=== PATIENT | female | born 1985 | race Caucasian/White ===

== ENCOUNTER 2020-07-25 17:19 | Outpatient (CLI) | payer OTHER, MEDICARE, SELFPAY ==
--- NOTE | ~2020-07-25 | XR_ITS ---
EXAMINATION: XR abdomen/kub 1V EXAM DATE: 07/25/2020 17:45 INDICATION: K59.00 - Constipation, unspecified . TECHNIQUE: Frontal projection of the upper abdomen, frontal projection lower abdomen/pelvis for inter pretation. There is no prior study for comparison. FINDINGS: There is expected amount of colonic stool and gas. No small bowel dilation, nonobstructiv e bowel gas pattern. There are no suspicious calcifications identified. There is no organomegaly suspected. The bones are unremarkable. There is no free intraperitoneal air. The lung bases are clear. IMPRESSION: Unremarkable abdomen x-ray exam. Reviewed, dictated and finalized at location A. 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
== END 2020-07-25 17:20 | disposition home or self-care (01) ==
PROVIDERS: PCP Family Medicine; Visit Provider Physician Assistant
DX: K59.00 Constipation, unspecified (principal)
CPT/HCPCS: 74018

== ENCOUNTER 2020-09-20 08:51 | Emergency (ER) | payer OTHER, MEDICARE, SELFPAY ==
[2020-09-20 09:02] VITALS: BP 126/88; PULSE 96; RESP 18; TEMP 36.2; O2SAT 99
[2020-09-20 09:49] LABS: Basophils Percent Auto 0.2 % (0.2-1.2); Eosinophils Absolute Auto 0.2 K/mm3 (0-0.3); Eosinophils Percent Auto 3.1 % (0-4.4); Hematocrit 39.7 % (37.0-47.0); Hemoglobin 13.2 g/dL (12.0-15.0); Immature Granulocyte Absolute 0.01 K/mm3 (0.00-0.031); Immature Granulocyte Percent A 0.2 % (0-0.5); Lymphocytes Absolute Auto 1.12 K/mm3 (0.9-3.2); Lymphocytes Percent Auto 19.3 % (18.3-44.2); Mean Corpuscular HGB Conc 33.2 g/dl (32-36); Mean Corpuscular Hemoglobin 27.8 pg (26-34); Mean Corpuscular Volume 83.6 fl (80-100); Mean Platelet Volume 9.8 fl (7.4-10.4); Monocytes Absolute Auto 0.5 K/mm3 (0.1-0.6); Monocytes Percent Auto 8.8 % (2.6-8.5); Neutrophils Percent Auto 68.4 % (45.5-73.1); Platelet Count Result 303 k/mm3 (150-375); Red Blood Count 4.75 M/mm3 (4.2-5.4); Red Cell Distribution Width 12.7 % (11.5-14.5); White Blood Count 5.8 K/mm3 (4.5-10.0)
[2020-09-20 09:54] LABS: Add Urine Microscopic? YES; Appearance Urine Cloudy (Clear); Bilirubin Urine Negative (Negative); Blood Urine 1+ (Negative); Color Urine Yellow (Yellow); Glucose Urine UA Negative (Negative); Ketones Urine 1+ mg/dL (Negative); Leukocyte Esterase Ur 1+ LEU/UL (Negative); Mucus Urine Few /lpf; Nitrate Urine Negative (Negative); Protein Urine 1+ mg/dL (Negative); RBC Urine 0-2 /hpf (0-2); Specific Grav Ur 1.016 (1.001-1.035); Squamous Epithelial Cell Urine Many /hpf (Few); Urobilinogen Urine Negative mg/dL (<2.0)
[2020-09-20 10:04] LABS: Alanine Aminotransferase 27 U/L (4-35); Albumin Level 4.3 g/dL (3.5-5.1); Alkaline Phosphatase 65 U/L (38-126); Anion Gap 9 mmol/L (8-16); Aspartate Amino Transferase 32 U/L (14-36); Bilirubin,Total 0.5 mg/dL (0.2-1.3); Blood Urea Nitrogen 4 mg/dL (7-17); Calcium 9.1 mg/dL (8.4-10.2); Carbon Dioxide 29 mmol/L (22-30); Chloride 101 mmol/L (98-107); Estimated CRCL calculation 174 ml/min; Estimated Glomerular Filt Rate > 60; Glucose 90 mg/dL (65-105); Lipase 127 U/L (23-300); Potassium 3.7 mmol/L (3.4-5.0); Sodium 139 mmol/L (137-145)
--- NOTE | 2020-09-20 10:22 | ED.GENADULT ---
HPI - General Adult General Chief complaint: Nausea/Vomiting/Diarrhea Stated complaint: diarrhea Time Seen by Provider: 09/20/20 09:14 Source: patient Mode of arrival: ambulatory Limitations: no limitations History of Present Illness HPI narrative: Patient is a 34-year-old female who presents with diarrhea since Thursday has had up to 9 loose stools per day described as watery patient was seen by primary care on Thursday given an antibiotic which she has not taken and also advised to take Imodium which she states made the diarrhea worse. Patient on arrival is in no distress patient notes that she gets intermittent cramping but denies any constant pain rectal bleeding melena nausea or vomiting or any fever chills. Patient notes that she also had a negative Covid test. Patient with history of ALS followed out of [facility]. Patient on arrival in no distress does not appear toxic. Patient denies sick contacts or similar occurrence in the past. Patient notes she is in a trial on a new medication for ALS and has been on this for months without issue. Related Data Home Medications Medication Instructions Recorded Confirmed amitriptyline 25 mg tablet 25 mg PO ONCE 09/05/19 09/20/20 baclofen 10 mg tablet 10 mg PO DAILY 09/05/19 09/20/20 edaravone 30 mg/100 mL intravenous 60 mg IVPB DAILY 09/05/19 09/20/20 piggyback riluzole 50 mg tablet 50 mg PO Q12H 09/05/19 09/20/20 omeprazole 40 mg capsule,delayed 40 mg PO DAILY 07/25/20 09/20/20 release Allergies Allergy/AdvReac Type Severity Reaction Status Date / Time No Known Allergies Allergy Verified 09/20/20 09:06 Review of Systems Review of Systems: All systems reviewed & are unremarkable except as noted in HPI and below PMFSH Past Medical History Medical History Abnormality of gait ALS (amyotrophic lateral sclerosis) Family History Family History Grandparent Hypertension Family history of arthritis Carcinoma of colon Sibling Family history of alcoholism Mother Family history of arthritis Social History Social History Social History: Smoking status: Never smoker Second hand tobacco smoke exposure: No Alcohol intake: never Substance use: never Substance use type: does not use Gender identity (if verbalized by the patient): Female Exam Narrative: Exam Narrative: GENERAL: Well-appearing, well-nourished, and in no acute distress. HEAD: Normocephalic, atraumatic. EYES: PERRLA and EOMI. ENT: Nares clear, no rhinorrhea or epistaxis. Mucous membranes moist. CHEST: Clear to auscultation. No respiratory distress. No wheezes rales or rhonchi HEART: Regular rate and rhythm. No murmur heard. Normal peripheral pulses. ABDOMEN: Soft, nontender, nondistended EXTREMITIES: No edema SKIN: Warm, dry, no rash. NEURO: No focal deficits. Alert and oriented x3. Cranial nerves II through XII grossly intact PSYCH: Normal mood and affect. Course Course Emergency Course: Patient in the room at this time aware of case findings treatment plan diagnosis was unable to produce a stool sample in the emergency department patient is tolerating p.o. intake has been hydrated with 2 L in the emergency department. Patient afebrile nontoxic-appearing no distress no high risk changes in the blood work. Patient with nontender abdominal exam. Vital Signs Vital signs: Vital Signs Temperature 97.1 F L 09/20/20 09:02 Pulse Rate 96 09/20/20 09:02 Respiratory Rate 18 09/20/20 09:02 Blood Pressure 126/88 09/20/20 09:02 Pulse Oximetry 99 09/20/20 09:02 Temperature 97.1 F L 09/20/20 09:02 Pulse Rate 96 09/20/20 09:02 Respiratory Rate 18 09/20/20 09:02 Blood Pressure 126/88 09/20/20 09:02 Pulse Oximetry 99 09/20/20 09:02 Medical Decision Making [facility] Narrative Med
[2020-09-20] MEDS: HYOSCYAMINE SULFATE 0.125 MG TABLET PO (10:31)
[2020-09-20] MEDS: FAMOTIDINE 20 MG/2 ML VIAL IV PUSH (10:31)
[2020-09-20] MEDS: SODIUM CHLORIDE 0.9% IV 1,000 ML 999 ML IV CONT (10:31)
[2020-09-20] MEDS: DEXTROSE 5%/LACTATED RINGERS 1,000 ML 999 ML IV CONT (10:32)
--- NOTE | 2020-09-20 12:28 | PC.NURSE ---
Pt to stool to attempt to collect stool speciman. No BM produced at this time. Pt states her cramping has improved somewhat. Pt's IVF reattached, educated to hold arm straight for those to complete.
[2020-09-20 13:27] VITALS: BP 122/78; PULSE 76; RESP 18; O2SAT 99
== END 2020-09-20 13:28 | disposition home or self-care (01) ==
PROVIDERS: Emergency Medicine Emergency Medical Services; Emergency Provider Emergency Medicine; PCP Family Medicine
DX: R19.7 Diarrhea, unspecified (principal); G12.21 Amyotrophic lateral sclerosis; Z79.899 Other long term (current) drug therapy
CPT/HCPCS: 36415; 80053; 81001; 81025; 83690; 84443; 85025; 87086; 96361; 96374; 99284; A9270; J7030; J7121

== ENCOUNTER 2020-09-21 06:36 | Outpatient (NON) | payer OTHER, MEDICARE, SELFPAY | END 2020-09-21 06:37 | PROVIDERS: PCP Family Medicine; Visit Provider Emergency Medicine Emergency Medical Services | DX: R19.7 Diarrhea, unspecified (principal) | CPT/HCPCS: 87045; 87046; 87324; 87427; 87493; 89055 ==

== ENCOUNTER 2021-05-09 15:07 | Observation (INO) | payer OTHER, MEDICARE, SELFPAY ==
[2021-05-09] VITALS (16 sets, daily range): BP systolic 99–132; BP diastolic 58–91; PULSE 86–147; RESP 16–27; TEMP 36.2–37.9; O2SAT 94–100; BMI 23.9
--- NOTE | ~2021-05-09 | US_ITS ---
EXAMINATION: US venous doppler UE LT DATE: 05/10/2021 09:27 INDICATION: Left upper limb erythema. TECHNIQUE: Grayscale ultrasound images without and with compression and Doppler ultrasound images of the left upper extremity veins were obtained. COMPARISON: None. FINDINGS: The visualized portions of the left internal jugular vein, subclavian vein, axillary vein, brachial v eins, basilic vein, cephalic vein, and radial vein are patent. The ulnar vein is not identified. Ther e is thrombus in a superficial vein in the lateral forearm. IMPRESSION: 1. No deep venous thrombosis. 2. Superficial vein thrombosis in the lateral forearm. Reviewed, dictated and finalized at location A.
--- NOTE | ~2021-05-09 | XR_ITS ---
EXAMINATION: XR chest 1V portable INDICATION: Fever TECHNIQUE: Portable AP chest at 1548 hours COMPARISON: 09/05/2007 FINDINGS: The lungs are free of acute opacities. There is no pleural effusion or pneumothorax. The ca rdiothymic silhouette is normal. IMPRESSION: 1. No acute cardiopulmonary abnormality. Reviewed, dictated and finalized at location A.
--- NOTE | 2021-05-09 15:18 | ECG_ITS ---
Measurements Intervals [place] Rate: 54 P: 24 RI: 115 QRS: 75 QRSD: 78 T: 10 QT: 478 QTc: 455 Interpretive Statements SINUS TACHYCARDIA WITH SHORT RI INTERVAL INCOMPLETE RIGHT BUNDLE BRANCH BLOCK LOW QRS VOLTAGE IN PRECORDIAL LEADS BORDERLINE T WAVE ABNORMALITY- DIFFUSE LEADS BASELINE ARTIFACT- I, II, III, AVR, AVL, AVF, V1-V6 ABNORMAL ECG Electronically Signed On 05-09-2021 16:26:18 CDT by Neil Nina D.O.
[2021-05-09] MEDS: SODIUM CHLORIDE 0.9% IV 1,000 ML 999 ML IV CONT ×2 (16:08→16:54)
--- NOTE | 2021-05-09 16:10 | PC.NURSE ---
Pt states she has been experincing fever and body ache, she took ibuprofen at 1330, pt states she has chills last night as well, pt A&Ox4, no acute distress at this time
[2021-05-09 16:30] LABS: Basophils Percent Auto 0.5 % (0.2-1.2); Eosinophils Absolute Auto 0.4 K/mm3 (0-0.3); Eosinophils Percent Auto 5.9 % (0-4.4); Hematocrit 35.6 % (37.0-47.0); Hemoglobin 12.1 g/dL (12.0-15.0); Immature Granulocyte Absolute 0.02 K/mm3 (0.00-0.031); Immature Granulocyte Percent A 0.3 % (0-0.5); Lymphocytes Absolute Auto 0.26 K/mm3 (0.9-3.2); Lymphocytes Percent Auto 4.2 % (18.3-44.2); Mean Corpuscular Hemoglobin 28.4 pg (26-34); Mean Corpuscular Volume 83.6 fl (80-100); Mean Platelet Volume 9.7 fl (7.4-10.4); Monocytes Absolute Auto 0.3 K/mm3 (0.1-0.6); Monocytes Percent Auto 4.8 % (2.6-8.5); Neutrophils Absolute Auto 5.3 K/mm3 (1.3-6.7); Neutrophils Percent Auto 84.3 % (45.5-73.1); Platelet Count Result 219 k/mm3 (150-375); Red Blood Count 4.26 M/mm3 (4.2-5.4); Red Cell Distribution Width 13.1 % (11.5-14.5); White Blood Count 6.3 K/mm3 (4.5-10.0)
[2021-05-09 16:40] LABS: Prothrombin Time 13.4 Seconds (11.1-14.7)
[2021-05-09 16:41] LABS: Partial Thromboplastin Time 30.4 SECONDS (22.3-36.8)
[2021-05-09 16:59] LABS: Alanine Aminotransferase 36 U/L (4-35); Albumin Level 4.4 g/dL (3.5-5.1); Alkaline Phosphatase 70 U/L (38-126); Anion Gap 10 mmol/L (8-16); Aspartate Amino Transferase 47 U/L (14-36); Blood Urea Nitrogen 9 mg/dL (7-17); CRP 6.4 mg/dL (<1.0); Calcium 9.3 mg/dL (8.4-10.2); Carbon Dioxide 23 mmol/L (22-30); Chloride 101 mmol/L (98-107); Estimated CRCL calculation 238 ml/min; Estimated Glomerular Filt Rate > 60; Glucose 110 mg/dL (65-110); Potassium 3.6 mmol/L (3.4-5.0); Sodium 134 mmol/L (137-145)
--- NOTE | 2021-05-09 17:17 | ED.FEVER ---
HPI - Fever General Chief Complaint: Fever Stated Complaint: Fever, Chills Time Seen by Provider: 05/09/21 15:20 Source: patient History of Present Illness HPI Narrative: Patient presents with fever. Carissa has had fever since yesterday and generalized fatigue. Rockys last time she had symptoms like this she had sepsis. She reports she was seen in urgent care was initially feeling better however today her symptoms worsen so she came to the ER for evaluation reports other than the fatigue she does not clear as of pain reports very mild headache she denies cough, congestion, urinary symptoms nausea,, vomiting, chest pain as of breath, abdominal pain. Related Data Home Medications Medication Instructions Recorded Confirmed amitriptyline 25 mg tablet 25 mg PO ONCE 09/05/19 09/20/20 baclofen 10 mg tablet 10 mg PO DAILY 09/05/19 09/20/20 edaravone 30 mg/100 mL intravenous 60 mg IVPB DAILY 09/05/19 09/20/20 solution riluzole 50 mg tablet 50 mg PO Q12H 09/05/19 09/20/20 omeprazole 40 mg capsule,delayed 40 mg PO DAILY 07/25/20 09/20/20 release Allergies Allergy/AdvReac Type Severity Reaction Status Date / Time No Known Allergies Allergy Verified 09/20/20 09:06 Review of Systems Review of Systems: CONSTITUTIONAL: Patient reports fevers EYES: Denies visual changes, redness, or discharge. ENT: Denies rhinorrhea, congestion, sore throat, or otalgia. CARDIOVASCULAR: Denies chest pain, palpitations, or edema. RESPIRATORY: Denies cough or dyspnea. GASTROINTESTINAL: Denies abdominal pain, nausea, vomiting, or diarrhea. GENITOURINARY: Denies dysuria or hematuria. SKIN: Denies rash or itching. MUSCULOSKELETAL: Denies back pain, joint pain, or myalgia. NEUROLOGIC: Denies headache, numbness, dizziness, or acute focal weakness. PSYCHIATRIC: Denies anxiety or depression. All systems reviewed & are unremarkable except as noted in HPI and below PMFSH Past Medical History Medical History Abnormality of gait ALS (amyotrophic lateral sclerosis) Family History Family History Grandparent Hypertension Family history of arthritis Carcinoma of colon Sibling Family history of alcoholism Mother Family history of arthritis Social History Social History Social History: Smoking status: Never smoker Second hand tobacco smoke exposure: No Alcohol intake: never Substance use: never Substance use type: does not use Gender identity (if verbalized by the patient): Female Sexual Orientation (if Verbalized by the Patient): Straight or Heterosexual Exam Narrative: GENERAL: Well-appearing, well-nourished, and in no acute distress. HEAD: Normocephalic, atraumatic. EYES: PERRLA and EOMI. ENT: Nares clear, no rhinorrhea or epistaxis. Mucous membranes moist. NECK: Supple. No masses. No JVD CHEST: Clear to auscultation. No respiratory distress. No wheezes rales or rhonchi HEART: Regular tachycardia. No murmur heard. Normal peripheral pulses. ABDOMEN: Soft, nontender, nondistended, normal active bowel sounds. EXTREMITIES: Limited range of motion due to weakness of ALS lower extremity muscle atrophy SKIN: Warm, dry, no rash. NEURO: No focal deficits. alert and oriented x3. PSYCH: Normal mood and affect. Course Reevaluation(s) Reevaluation #1: Patient is resting comfortably tachycardia is improved but persistent. Symptoms remain of unclear etiology however given persistent tachycardia will admit for observation and further management. Patient comfortable inpatient plan. Date: 05/09/21 Time: 17:40 Vital Signs Vital signs: Vital Signs Temperature 37.9 C H 05/09/21 15:15 Pulse Rate 141 H 05/09/21 15:15 Respiratory Rate 18 05/09/21 15:15 Blood Pressure 129/91 H 05/09/21 15:15 Pulse Oximetry 96 05/09/21 15:15 Temperature 36.2 C L
[2021-05-09 17:20] LABS: Add Urine Microscopic? YES; Appearance Urine Clear (Clear); Bilirubin Urine Negative (Negative); Blood Urine 1+ (Negative); Color Urine Yellow (Yellow); Glucose Urine UA Negative (Negative); Ketones Urine 1+ mg/dL (Negative); Leukocyte Esterase Ur Negative LEU/UL (Negative); Mucus Urine Rare /lpf; Nitrate Urine Negative (Negative); Protein Urine 1+ mg/dL (Negative); Specific Grav Ur 1.018 (1.001-1.035); Squamous Epithelial Cell Urine Few /hpf (Few); Urobilinogen Urine Negative mg/dL (<2.0); WBC Urine 0-3 /hpf
[2021-05-09] MEDS: IBUPROFEN IV 800 MG/200 ML 800 MG/200 ML BAG 400 MG IVPB (18:49)
[2021-05-09] MEDS: SODIUM CHLORIDE 0.9% IV 1,000 ML 125 ML IV CONT (19:30)
--- NOTE | 2021-05-09 21:47 | PC.NURSE ---
This patient, Jigna Winter, was admitted to 3 [facility] Surg Room 324-01 @21:47. Patient/family oriented to hospital policies and general routines including ID bracelet, bed and alarms, visiting hours, pain management, procedures, bathroom and other care routines, personal items, smoking policy, room service/diet, and visiting hours. Information on how to activate the Rapid Response Team has been discussed. Patient/Family are encouraged to report perceived risks to care and to ask questions if they do not understand what they are told or what they should do.
--- NOTE | 2021-05-09 21:51 | PM.IMHP ---
H&P: HPI History of Present Illness Date/Time: 05/09/21 21:51 this is a 35-year-old female patient who is wheelchair-bound and has a history of ALS. The patient is currently taking daily IV infusions for her ALS and is on day 10 of . She tells me that she has had an IV in the left forearm for 5 days and is slightly red and tender. The patient stated that she had a temperature over 100? today and was concerned. She has myalgia and generalized fatigue. She stated she felt like this when she had sepsis in the past. She went to urgent care initially but decided to come to the emergency room because she felt worse. She also had a mild headache but denies any cough for congestion. The patient stated she took Motrin today and her stomach got upset she had some acid reflux and some nausea afterwards. The patient typically urinates on her own and does not have to self cath. She denies any urinary symptoms at this time. She denies any shortness of breath or any abdominal pain. She has no leukocytosis however neutrophil percentage is 84.3. I recommended Infectious Disease and Infectious Disease was consulted recommended no antibiotics at this time. Her urine does not appear infectious. Chest x-ray was read as no acute cardiopulmonary abnormality. The patient was given IV fluids and IV Tylenol as well as IV ibuprofen. Patient's heart rate was in the 1 teens with the lowest blood pressure being 99/68. Her heart rate improved 1 she received IV fluids. Her blood pressure also improved with IV fluids. Patient stated that at urgent care she was tested for influenza, COVID, and strep throat. She stated that all were negative. infectious disease as well as neurology has been consulted.The patient is being admitted for observation status on the date of service of 05/09/2021 Chief Complaint: Fever Review of Systems Review of Systems: All systems reviewed & are unremarkable except as noted in HPI and below Constitutional: Constitutional: Reports as per HPI and Reports no additional constitutional complaints Eyes: Eyes: Reports as per HPI and Reports no additional eye complaints ENT: Reports system reviewed and no additional complaints, except as documented and Reports Normal hearing present Cardiovascular: Cardiovascular: Reports no additional cardiovascular complaints Respiratory: Respiratory: Reports no additional respiratory complaints and Reports no additional respiratory complaints Gastrointestinal: Gastrointestinal: Reports as per HPI and Reports no additional gastrointestinal complaints Musculoskeletal: Musculoskeletal: Reports no additional musculoskeletal complaints Integumentary/Breasts: Skin/Breast: Reports system reviewed and no additional complaints, except as docu and Reports as per HPI Neurologic: Reports system reviewed and no additional complaints, except as documented, Reports as per HPI and Reports Normal hearing present Psychiatric: Psychiatric: Reports no additional psychiatric complaints and Reports as per HPI Endocrine: Endocrine: Reports no additional endocrine complaints Hematologic/Lymphatic: Hematologic/Lymphatic: Reports no additional hematologic/lymphatic complaints Allergic/Immunologic: Allergic/Immunologic: Reports no additional allergic/immunologic complaints [facility] Past Medical History Medical History (Updated 05/09/21 @ 22:05 by Glendy Eller NP) Abnormality of gait ALS (amyotrophic lateral sclerosis) Chronic GERD Surgical History Surgical History (Updated 05/09/21 @ 22:06 by Glendy Eller NP) No pertinent past surgical history [place] teeth extracted Family History Family History (Updated 05/09/21 @ 22:05 by Glendy Eller NP) Grandparent Hypertension Family history of arthritis Carcinoma of colon Sibling Family history of alcoholism Mother Family history of arthritis Father Hypertension Social History Social History (Updated 05/09/21 @ 22:06 by Glendy Eller NP)
--- NOTE | 2021-05-09 22:57 | PC.NURSE ---
during admission patient stated FULL CODE, went through all the options with her. I called Glendy to inform her of the change (originally DNR) and she allowed me to change it in the system to abide by patients wishes. Changed appropriately.
[2021-05-10] MEDS: SODIUM CHLORIDE 0.9% IV 1,000 ML 125 ML IV CONT (04:01)
[2021-05-10 06:00] VITALS: BP 100/74; PULSE 88; RESP 18; TEMP 36.9; O2SAT 98
[2021-05-10 06:21] LABS: Basophils Percent Auto 0.8 % (0.2-1.2); Eosinophils Percent Auto 0.4 % (0-4.4); Hematocrit 29.8 % (37.0-47.0); Hemoglobin 9.5 g/dL (12.0-15.0); Lymphocytes Absolute Auto 0.33 K/mm3 (0.9-3.2); Mean Corpuscular HGB Conc 31.9 g/dl (32-36); Mean Corpuscular Hemoglobin 27.2 pg (26-34); Mean Corpuscular Volume 85.4 fl (80-100); Mean Platelet Volume 9.5 fl (7.4-10.4); Monocytes Absolute Auto 0.2 K/mm3 (0.1-0.6); Monocytes Percent Auto 8.1 % (2.6-8.5); Neutrophils Absolute Auto 1.8 K/mm3 (1.3-6.7); Neutrophils Percent Auto 76.7 % (45.5-73.1); Platelet Count Result 144 k/mm3 (150-375); Red Blood Count 3.49 M/mm3 (4.2-5.4); Red Cell Distribution Width 13.1 % (11.5-14.5); White Blood Count 2.4 K/mm3 (4.5-10.0)
[2021-05-10 06:25] LABS: Lactic Acid Reflex 0.6 mmol/L (0.7-2.1)
[2021-05-10 06:41] LABS: CRP 13.7 mg/dL (<1.0); Magnesium 1.5 mg/dL (1.6-2.3)
[2021-05-10 08:16] LABS: Alanine Aminotransferase 38 U/L (4-35); Alkaline Phosphatase 46 U/L (38-126); Anion Gap 1 mmol/L (8-16); Aspartate Amino Transferase 54 U/L (14-36); Bilirubin,Total 1.6 mg/dL (0.2-1.3); Blood Urea Nitrogen 4 mg/dL (7-17); Calcium 8.1 mg/dL (8.4-10.2); Carbon Dioxide 27 mmol/L (22-30); Chloride 108 mmol/L (98-107); Estimated CRCL calculation 172 ml/min; Estimated Glomerular Filt Rate > 60; Glucose 93 mg/dL (65-110); Potassium 3.3 mmol/L (3.4-5.0); Sodium 136 mmol/L (137-145)
[2021-05-10] MEDS: MAGNESIUM SULF 2 GM/WATER 50ML 2 GM/50 ML BAG IVPB (09:45)
--- NOTE | 2021-05-10 09:55 | PHAR ---
HOME MEDICATIONS VERIFIED BY PHARMACY: RADICAVA (EDARAVONE) 30MG/100Ml BAG INFUSE CONTENTS OF 2 BAGS (60MG) IV VIA RATE-FLOW GRAVITY OVER 60 MINUTES (200ML/HR) DAILY FOR 10 DAYS ONCE REMOVED FROM OVERWRAP USE WITHIN 24 HOURS. RILUZOLE 50MG TABLETS TAKE 1 TAB PO EVERY 12 HOURS [id number]
[2021-05-10] MEDS: BACLOFEN 10 MG TABLET PO ×2 (10:18→17:09)
[2021-05-10] MEDS: PANTOPRAZOLE 40 MG TABLET PO ×2 (10:19→17:09)
--- NOTE | 2021-05-10 10:43 | WPDNEURCNPN ---
Assessment and Plan Additional Plan extremely pleasant person the ongoing history of motor neuron disease for which she is being treated at the [facility] and the treatment will be continued as such at this stage there is no specific neurological intervention is necessary Consult date: 05/10/21 HPI: Jigna Winter is a 35 year old female has been admitted to the hospital for the complaints of febrile status along with the myalgia and generalized fatigue and with the observation that she had the same feeling when she has had sepsis in the past. He was initially evaluated in the urgent care and was advised to come to the emergency room because she was feeling worse. She has complained of mild headache for which she took the medication like Motrin which made her stomach upset with acid reflux she typically urinates on her own and does not have to self cath her neutrophils were 84.3 foot features infectious disease consultants were called who order the antibiotics chest x-ray was without cardiopulmonary abnormality she receives IV fluids IV Tylenol IV ibuprofen her test for the influenza, COVID, and strep throat at the Urgent Care were negative. She was admitted here for further care and Neurology has been consulted because patient has ongoing history of ALS with wheelchair-bound status, she carries the code status do not resuscitate, nor drinker, she is not a smoker. Her outpatient medications include amitriptyline 25 mg daily, baclofen 10 mg daily,edaravone 60 mg IV piggyback daily Review of Systems Review of Systems: All systems reviewed & are unremarkable except as noted in HPI and below PMFSH Past Medical History Medical History Abnormality of gait ALS (amyotrophic lateral sclerosis) Chronic GERD Surgical History Surgical History No pertinent past surgical history [place] teeth extracted Family History Family History Grandparent Hypertension Family history of arthritis Carcinoma of colon Sibling Family history of alcoholism Mother Family history of arthritis Father Hypertension Social History Social History Social History: the patient is and desires to have her is a durable power attorney lawyer for healthcare. She is disabled and has 2 children. The patient is lifelong nonsmoker does not use any marijuana alcohol or illicit drugs. Code status do not resuscitate Smoking status: Never smoker Second hand tobacco smoke exposure: No Alcohol intake: never Substance use: never Substance use type: does not use Gender identity (if verbalized by the patient): Female Sexual Orientation (if Verbalized by the Patient): Straight or Heterosexual Spiritual care concerns: No Meds Home Medications and Allergies Home Medications Medication Instructions Recorded Confirmed Type amitriptyline 25 mg tablet 10 mg PO ONCE 09/05/19 05/09/21 History baclofen 10 mg tablet 10 mg PO BID 09/05/19 05/09/21 History edaravone 30 mg/100 mL intravenous 60 mg IVPB DAILY 09/05/19 05/09/21 History solution riluzole 50 mg tablet 50 mg PO BID 09/05/19 05/09/21 History omeprazole 40 mg capsule,delayed 40 mg PO DAILY 07/25/20 05/09/21 History release Allergies Allergy/AdvReac Type Severity Reaction Status Date / Time adhesive tape Allergy Rash Verified 05/09/21 22:26 Vital Signs Vital Signs - 24 hr 05/09/21 15:15 05/09/21 15:34 05/09/21 15:40 Temperature 37.9 C H 37.5 C Pulse Rate 141 H 136 H 140 H Respiratory Rate 18 20 16 Blood Pressure 129/91 H 132/81 Pulse Oximetry 96 95 96 05/09/21 15:45 05/09/21 15:46 05/09/21 16:00 Temperature Pulse Rate 141 H 133 H 147 H Respiratory Rate 19 27 H 26 H Blood Pressure 119/81 Pulse Oximetry 94 94 95 05/09/21 16:15 05/09/21 16:30
--- NOTE | 2021-05-10 12:09 | PCCCNOTE ---
On 05/10/21, the student, [Isadora Macias ], provided care and completed [facility] documentation on this patient. I have reviewed the student's documentation and agree with the findings.
--- NOTE | 2021-05-10 13:37 | PM.IMPN ---
Progress Note: A&P Assessment and Plan (1) Fever: Qualifiers: Fever type: unspecified Qualified Code(s): R50.9 - Fever, unspecified Code(s): R50.9 - Fever, unspecified Status: Acute Assessment and Plan: Presented with fever up to 100.3. Complained of chills. Lactic acid within normal limits. COVID-19, influenza, and strep negative at outside urgent care on 05/09 Seems to be most likely viral in etiology based on lab workup. She has mild leukopenia Fever may also be related to superficial thrombosis. Transient bacteremia related to this is also a possibility, however less likely given overall clinical picture and improvement. Blood cultures are pending Infectious disease has been consulted and input is appreciated Continue gentle IV fluid hydration. Supportive care. Analgesics and antiemetics. Acetaminophen prn fever (2) ALS (amyotrophic lateral sclerosis): Code(s): G12.21 - Amyotrophic lateral sclerosis Status: Acute Assessment and Plan: Onset 2018. She is followed by a neuromuscular specialist at [facility]. Continue with edaravone infusion. Dose #9/10 today Appreciate neurology consultation (3) Tachycardia: Code(s): R00.0 - Tachycardia, unspecified Status: Acute Assessment and Plan: Noted to be tachycardic up to 140 on presentation. Likely related to fever/dehydration. Resolved with HR in 80s today Continue to monitor heart rate closely Continue gentle IV fluids (4) Superficial venous thrombosis of arm: Code(s): I82.619 - Acute embolism and thrombosis of superficial veins of unspecified upper extremity Status: Acute Assessment and Plan: She has had a peripheral IV in the left forearm for 5 days for outpatient infusions of ALS treatment. She reported redness and tenderness on presentation. Venous doppler of left upper extremity showed superficial vein thrombosis in the lateral forearm Supportive care. Elevate extremity. Warm compresses. (5) Elevated LFTs: Code(s): R79.89 - Other specified abnormal findings of blood chemistry Status: Acute Assessment and Plan: Total bilirubin, AST and ALT are mildly elevated. May be response to viral illness Continue to monitor CMP She has no abdominal pain med quadrant pain. Consider further imaging based on overall lab trends (6) Electrolyte abnormality: Code(s): E87.8 - Other disorders of electrolyte and fluid balance, not elsewhere classified Status: Acute Assessment and Plan: Potassium slightly low today at 3.3 with magnesium low at 1.5. This may be related to poor p.o. intake and dehydration. Administer 20 mEq p.o. KCl Administer 2 g IV magnesium sulfate Monitor potassium and magnesium levels Subjective Date/time seen: 05/10/21 13:37 Interval history: Date of service: 05/10/2021 Jigna Winter is a 35 year old female with a history of ALS who is seen in follow up for fever. She is starting to feel better today. She has not had any additional fevers or chills. She does feel nauseous today but has not had any episodes of vomiting. She was previously endorsing diffuse myalgias but notes that this has improved. She does complain of bilateral temporal headache. She was previously endorsing redness and warmth of her left forearm, but this has improved significantly as well. She was able to tolerate some of her breakfast today. She denies abdominal pain. Last bowel movement was 2 days ago. Denies diarrhea. Denies urinary symptoms. Denies wounds, rashes, excoriations. Review of Systems Review of Systems: All systems reviewed & are unremarkable except as noted in HPI and below Exam Narrative: Ms. Winter is a well-nourished, well-appearing 35-year-old female who is lying supine in bed. She appears comfortable and is in NARD. Neuro: awake, alert and oriented x4, speech clear, no focal neur
[2021-05-10] MEDS: ONDANSETRON INJ 4 MG/2 ML VIAL IV PUSH (13:56)
--- NOTE | 2021-05-10 14:48 | WPDINFPN2 ---
Progress Note: A&P Assessment and Plan (1) Fever: Qualifiers: Fever type: unspecified Qualified Code(s): R50.9 - Fever, unspecified Code(s): R50.9 - Fever, unspecified Status: Acute Assessment and Plan: fever very likely due to L ulnar phlebitis (she removed the catheter herself AM 05/09) REC No antibiotics unless + blood cultures or exam worsens. Call if Qs Subjective Date/time seen: 05/10/21 14:48 Objective Data Vital Signs Vital Signs: Vital Signs - 24 hr 05/09/21 15:15 05/09/21 15:34 05/09/21 15:40 Temperature 37.9 C H 37.5 C Pulse Rate 141 H 136 H 140 H Respiratory Rate 18 20 16 Blood Pressure 129/91 H 132/81 Pulse Oximetry 96 95 96 05/09/21 15:45 05/09/21 15:46 05/09/21 16:00 Temperature Pulse Rate 141 H 133 H 147 H Respiratory Rate 19 27 H 26 H Blood Pressure 119/81 Pulse Oximetry 94 94 95 05/09/21 16:15 05/09/21 16:30 05/09/21 16:35 Temperature Pulse Rate 125 H 121 H 117 H Respiratory Rate 26 H 26 H 20 Blood Pressure 124/86 Pulse Oximetry 96 97 100 05/09/21 16:39 05/09/21 16:45 05/09/21 16:46 Temperature 36.2 C L Pulse Rate 111 H 113 H Respiratory Rate 23 H 24 H Blood Pressure 115/73 Pulse Oximetry 98 98 05/09/21 19:23 05/09/21 19:46 05/09/21 20:01 Temperature Pulse Rate 110 H 103 H 105 H Respiratory Rate 21 H 19 20 Blood Pressure 114/58 L 99/68 L 103/64 Pulse Oximetry 100 96 96 05/09/21 21:40 05/10/21 06:00 Temperature 36.7 C 36.9 C Pulse Rate 86 88 Respiratory Rate 20 18 Blood Pressure 99/68 L 100/74 Pulse Oximetry 97 98 Intake/Output Intake/Output: Intake & Output 05/07/21 05/08/21 05/09/21 05/10/21 23:59 23:59 23:59 23:59 Intake Total 2300 1360 Balance 2300 1360 Meds/Results Medications: Active Medications Generic Name Dose Route Start Last Admin Trade Name Boydq PRN Reason Stop Dose Admin Acetaminophen 650 mg 05/10/21 14:12 Acetaminophen 325 Mg Tablet PO Q4H PRN Fever, mild pain Amitriptyline HCl 10 mg 05/10/21 21:00 Amitriptyline Hcl 10 Mg Tablet PO HS ISABEL Baclofen 10 mg 05/10/21 09:00 05/10/21 10:18 Baclofen 10 Mg Tablet PO 10 mg BID ISABEL Administration Home Med 0 each 05/10/21 09:00 05/10/21 11:35 Edaravone 30 Mg/100 Ml Iv Piggyback (Home Med) XX 05/11/21 09:01 1 each DAILY ISABEL Administration Home Med 1 each 05/10/21 09:00 05/10/21 11:36 Riluzole 50 Mg Tablet (Home Med) PO 06/09/21 08:59 1 each Q12HR ISABEL Administration Sodium Chloride 1,000 mls @ 50 mls/hr 05/09/21 18:25 05/10/21 04:01 Normal Saline Iv IV CONT 125 mls/hr .Q20H ISABEL Administration Ondansetron HCl 4 mg 05/09/21 18:10 05/10/21 13:56 Ondansetron Inj 4 Mg/2 Ml Vial IV PUSH 4 mg Q4H PRN Administration Nausea Pantoprazole Sodium 40 mg 05/10/21 09:00 05/10/21 10:19 Pantoprazole 40 Mg Tablet PO 40 mg BID ISABEL Administration Radiology Results: ITS Impressions Chest X-Ray 05/09/21 15:57 IMPRESSION: 1. No acute cardiopulmonary abnormality. Venous Doppler Study 05/10/21 09:55 IMPRESSION: 1. No deep venous thrombosis. 2. Superficial vein thrombosis in the lateral forearm. Labs Labs: Laboratory Results - last 24 hr 05/09/21 05/09/21 05/09/21 16:07 16:07 16:07 WBC 6.3 RBC 4.26 Hgb 12.1 Hct 35.6 L MCV 83.6 MCH 28.4 MCHC 34.0 RDW 13.1 Plt Count 219 MPV 9.7 Immature Gran % (Auto) 0.3 Neut % (Auto) 84.3 H Lymph % (Auto) 4.2 L [place] % (Auto) 4.8 Eos % (Auto) 5.9 H Baso % (Auto) 0.5 Lymph # (Auto) 0.26 L [place] # (Auto) 0.3 Eos # (Auto) 0.4 H Baso # (Auto) 0.0 Abs Immat Gran (auto) 0.02 Absolute Neuts (auto) 5.3 Absolute Nucleated RBC 0.0 Nucleated RBC % 0.0 PT 13.4 INR 1.0 APTT 30.4 Sodium 134 L Potassium 3.6 Chloride 101 Carbon Dioxide 23 Anion Gap 10 BUN 9 D Creatinine 0.20 L
[2021-05-10] MEDS: SODIUM CHLORIDE 0.9% IV 1,000 ML 50 ML IV CONT (15:48)
[2021-05-10 16:01] VITALS: BP 116/75; PULSE 79; RESP 20; TEMP 36.4; O2SAT 100
--- NOTE | 2021-05-10 19:15 | CONS_ITS ---
DATE OF CONSULTATION: 05/10/2021 REASON FOR CONSULTATION: Fever. HISTORY OF PRESENT ILLNESS: A 35-year-old female, who gets IV medication for ALS 10 days of every month. She presently is on day 9 of that cycle. She typically has peripheral IVs that stay in place 3-5 days for home administration. Her most recent catheter had been present for 5 days and the patient herself removed the catheter on the morning of admission. On the evening previously, she developed new-onset of fever up to 37.8, along with chills. No rigors and also myalgias. No recent antibiotics. She had recurrence in her symptoms yesterday and presented to Urgent Care, then to the emergency room and then admitted. She recalls the previous PICC placement with febrile illness as a result of PICC infection by her report, with identical symptoms at that time. No pain at current or past IV sites. No exposure to ill contacts. No immunosuppressants. No skin rashes. No pets at home. No cough, diarrhea or joint pains. ALLERGIES: ADHESIVE TAPE. HABITS: No tobacco or alcohol, marijuana. PRESENT MEDICATIONS: List reviewed. PAST MEDICAL HISTORY: In addition to the above chronic GERD, wisdom teeth removed. SOCIAL HISTORY: She is in a wheelchair at home and here she transfers on her own. She knows of no decubitus ulcers. She is . Lives locally. Disabled. Two children. FAMILY HISTORY: Hypertension, colon cancer. REVIEW OF SYSTEMS: Skin, respiratory, GI, , musculoskeletal, constitutional, negative other than chronic urinary incontinence. Chart indicates overactive bladder and diagnosis. PHYSICAL EXAMINATION: GENERAL: Young female appears her actual age, in no distress. VITAL SIGNS: Since arrival here T-max 37.9, 88, 18, 98% on room air, 100/74. SKIN: Warm and dry. No rashes. EENT: The conjunctivae are normal. Pupils equal, round, reactive. The oropharynx, oral mucosa normal. NECK: No masses, thyromegaly, meningismus. LUNGS: Clear to auscultation and percussion. CARDIAC: Regular rate and rhythm. No murmurs or gallops. ABDOMEN: Nontender, soft, nondistended. EXTREMITIES: Muscle wasting lower extremities with flexion contracture. Left ulna has a cord just proximal to her most recent IV site. There is no erythema, tenderness, or warmth. LABORATORY DATA: Blood cultures no growth so far. Venous Doppler, no DVT. Superficial thrombosis lateral forearm. Chest x-ray normal. Other labs, white count 2.4, down from 6.3, hemoglobin 9.5 down to 2.5 points, platelets are 144. Sodium 136, potassium 3.3, BUN 4, creatinine 0.3. She has low magnesium, mainly high bilirubin. Transaminases twice normal. CRP 13.7 up from 6.4. UA, no evidence of infection. ASSESSMENT: 1. Acute febrile illness, suspect catheter phlebitis without bacteremia. Drug fever is also in the differential given her mild pancytopenia, which can represent hypersensitivity reaction. Other causes are unlikely. 2. Amyotrophic lateral sclerosis. 3. Elevated liver function tests. RECOMMENDATIONS: 1. No antibiotics indicated. 2. Follow up on blood culture results and if these are positive, then she will need specific therapy. 3. Supportive care. Thank you very much for asking me to see her. Call if questions. MARY MCCONNELL M.D. CLINICAL ALLERGIST CLINICAL ALLERGIST D Daina MT: Roberto
[2021-05-10 20:10] VITALS: PULSE 82; RESP 16; O2SAT 99
[2021-05-10] MEDS: AMITRIPTYLINE HCL 10 MG TABLET PO (21:06)
[2021-05-10 21:26] VITALS: BP 114/73; PULSE 82; RESP 16; TEMP 36.5; O2SAT 99
[2021-05-11 05:35] VITALS: BP 110/66; PULSE 76; RESP 16; TEMP 36.6; O2SAT 97
[2021-05-11 06:47] LABS: Basophils Percent Auto 0.8 % (0.2-1.2); Eosinophils Absolute Auto 0.1 K/mm3 (0-0.3); Eosinophils Percent Auto 3.3 % (0-4.4); Hematocrit 28.8 % (37.0-47.0); Hemoglobin 9.5 g/dL (12.0-15.0); Immature Granulocyte Absolute 0.01 K/mm3 (0.00-0.031); Immature Granulocyte Percent A 0.4 % (0-0.5); Lymphocytes Absolute Auto 0.91 K/mm3 (0.9-3.2); Lymphocytes Percent Auto 37.9 % (18.3-44.2); Mean Corpuscular Hemoglobin 28.3 pg (26-34); Mean Corpuscular Volume 85.7 fl (80-100); Mean Platelet Volume 9.8 fl (7.4-10.4); Monocytes Absolute Auto 0.2 K/mm3 (0.1-0.6); Neutrophils Absolute Auto 1.1 K/mm3 (1.3-6.7); Neutrophils Percent Auto 47.6 % (45.5-73.1); Platelet Count Result 148 k/mm3 (150-375); Red Blood Count 3.36 M/mm3 (4.2-5.4); Red Cell Distribution Width 13.2 % (11.5-14.5); White Blood Count 2.4 K/mm3 (4.5-10.0)
[2021-05-11 07:04] LABS: Alanine Aminotransferase 38 U/L (4-35); Albumin Level 3.2 g/dL (3.5-5.1); Alkaline Phosphatase 51 U/L (38-126); Anion Gap 6 mmol/L (8-16); Aspartate Amino Transferase 39 U/L (14-36); Bilirubin,Total 1.2 mg/dL (0.2-1.3); Blood Urea Nitrogen 2 mg/dL (7-17); Calcium 8.3 mg/dL (8.4-10.2); Carbon Dioxide 26 mmol/L (22-30); Chloride 106 mmol/L (98-107); Creatine Kinase 64 U/L (30-135); Estimated CRCL calculation 172 ml/min; Estimated Glomerular Filt Rate > 60; Glucose 91 mg/dL (65-110); Potassium 3.2 mmol/L (3.4-5.0); Sodium 138 mmol/L (137-145)
[2021-05-11 08:00] VITALS: PULSE 76; RESP 16; O2SAT 97
[2021-05-11] MEDS: BACLOFEN 10 MG TABLET PO (08:24)
[2021-05-11] MEDS: PANTOPRAZOLE 40 MG TABLET PO (08:24)
[2021-05-11 09:19] LABS: Magnesium 1.8 mg/dL (1.6-2.3)
[2021-05-11] MEDS: POTASSIUM CHLORIDE 20 MEQ PACKET (FOR LIQUID) 40 MEQ PO (10:32)
--- NOTE | 2021-05-11 10:56 | PHAR ---
Radicava 30mg/100ml IV infusion bags seen in pharmacy and returned to RN at window
[2021-05-11] MEDS: ACETAMINOPHEN 325 MG TABLET 650 MG PO (13:38)
--- NOTE | 2021-05-11 13:47 | PM.DS ---
DS: Admitting Diagnosis Discharge Date 05/11/21 Admitting Diagnosis Fever DS: Discharge Diagnosis Discharge Diagnosis (1) Fever: Qualifiers: Fever type: unspecified Qualified Code(s): R50.9 - Fever, unspecified Code(s): R50.9 - Fever, unspecified Status: Acute Assessment and Plan: Presented with fever up to 100.3. Complained of chills. Lactic acid within normal limits. COVID-19, influenza, and strep negative at outside urgent care on 05/09. Fever felt to be most likely related to superficial thrombophlebitis. She was evaluated by Infectious Disease Dr. Bhatti. No antibiotics recommended. Viral etiology not excluded, and she did have leukopenia. Blood cultures monitored closely, negative nearly 48 hours when patient began feeling better and requested discharge home. Discussed that blood cultures will continue to be monitored for 1 week, and if blood cultures were to become positive she would need treatment. At time of dictation, blood cultures negative for >60 hours and will continue to be monitored. Fever resolved. (2) Superficial venous thrombosis of arm: Code(s): I82.619 - Acute embolism and thrombosis of superficial veins of unspecified upper extremity Status: Acute Assessment and Plan: She had a peripheral IV in the left medial forearm for 5 days for outpatient infusions of ALS treatment. She reported redness and tenderness on presentation. Venous doppler of left upper extremity showed superficial vein thrombosis in the lateral forearm, the likely cause of fever. Supportive care provided including elevation, warm compress, heat. She does receive IV infusions 10 days per month. She has home health services who change the peripheral IV every 5 days. (3) ALS (amyotrophic lateral sclerosis): Code(s): G12.21 - Amyotrophic lateral sclerosis Status: Acute Assessment and Plan: Onset 2019. She is followed by a neuromuscular specialist at [facility]. Completed day 9 and 10 of edaravone infusion during this hospital stay. Evaluated by neurology here. Continue outpatient follow up with her neurologist. (4) Tachycardia: Code(s): R00.0 - Tachycardia, unspecified Status: Acute Assessment and Plan: Noted to be tachycardic up to 140 on presentation, secondary to fever/dehydration. She was adequately rehydrated with IV fluids and tachycardia resolved with cessation of fever. (5) Elevated LFTs: Code(s): R79.89 - Other specified abnormal findings of blood chemistry Status: Acute Assessment and Plan: Total bilirubin, AST and ALT mildly elevated on presentation, may be in response to fevers/possible viral illness. Total bilirubin normalized and AST and ALT improved significantly, essentially normalized. Anticipate complete resolution. (6) Electrolyte abnormality: Code(s): E87.8 - Other disorders of electrolyte and fluid balance, not elsewhere classified Status: Acute Assessment and Plan: Potassium and magnesium were low and supplemented. This may be related to illness with nausea, episode of vomiting, and poor p.o. intake. Magnesium levels normalized with supplementation. She will begin taking potassium 20 mEq daily for 1 week and recheck potassium and magnesium levels in 1 week. Anticipate improvement as diet is advanced since she is feeling better. Follow-up with PCP for further management following outpatient labs. DS: Summary Hospital Course Hospital Course: Date of admission: 05/09/2021 Date of discharge: 05/11/2021 Jigna Winter is a 35 year old female with a history of ALS who is managed with IV infusions via peripheral IV 10 days per months who presented to the emergency department on 05/09/2021 with complaints of fever for 1 day as well as generalized fatigue. She was evaluated at urgent care for fever with negative COVID, influenza, and strep test. On presentation to the ED
== END 2021-05-11 14:18 | disposition home or self-care (01) ==
LOC: ANHED 18:27 → ANH3MEDSUR 21:18
PROVIDERS: Emergency Medicine; Nurse Practitioner; Physician Assistant; Admitting Provider Internal Medicine Critical Care Medicine; Emergency Provider Emergency Medicine; PCP Internal Medicine; Visit Provider Internal Medicine
DX: I82.612 Acute embolism and thrombosis of superficial veins of left upper extremity (principal); R50.9 Fever, unspecified; G12.21 Amyotrophic lateral sclerosis; R00.0 Tachycardia, unspecified; R79.89 Other specified abnormal findings of blood chemistry; E87.8 Other disorders of electrolyte and fluid balance, not elsewhere classified
CPT/HCPCS: 36415; 71045; 80053; 81001; 82550; 83605; 83735; 84443; 85025; 85610; 85730; 86140; 87040; 93005; 93971; 96361; 96365; 96375; 99285; A9270; G0378; J0131; J1741; J2405; J3475; J7030

== ENCOUNTER 2022-09-01 15:48 | Emergency (ER) | payer OTHER, MEDICARE, SELFPAY ==
[2022-09-01 16:02] VITALS: BP 110/98; PULSE 87; RESP 16; TEMP 36.9; O2SAT 98
[2022-09-01 16:22] LABS: Basophils Percent Auto 0.6 % (0.2-1.2); Eosinophils Absolute Auto 0.1 K/mm3 (0-0.3); Eosinophils Percent Auto 0.9 % (0-4.4); Hematocrit 38.4 % (37.0-47.0); Hemoglobin 11.9 g/dL (12.0-15.0); Immature Granulocyte Absolute 0.01 K/mm3 (0.00-0.031); Immature Granulocyte Percent A 0.2 % (0-0.5); Lymphocytes Absolute Auto 1.43 K/mm3 (0.9-3.2); Lymphocytes Percent Auto 22.3 % (18.3-44.2); Mean Corpuscular Hemoglobin 24.9 pg (26-34); Mean Corpuscular Volume 80.5 fl (80-100); Mean Platelet Volume 9.5 fl (7.4-10.4); Monocytes Absolute Auto 0.4 K/mm3 (0.1-0.6); Monocytes Percent Auto 6.9 % (2.6-8.5); Neutrophils Absolute Auto 4.4 K/mm3 (1.3-6.7); Neutrophils Percent Auto 69.1 % (45.5-73.1); Platelet Count Result 309 k/mm3 (150-375); Red Blood Count 4.77 M/mm3 (4.2-5.4); Red Cell Distribution Width 15.6 % (11.5-14.5); White Blood Count 6.4 K/mm3 (4.5-10.0)
[2022-09-01 16:34] LABS: Alanine Aminotransferase 24 U/L (6-35); Albumin Level 4.7 g/dL (3.5-5.1); Alkaline Phosphatase 75 U/L (38-126); Anion Gap 6 mmol/L (8-16); Aspartate Amino Transferase 31 U/L (14-36); Blood Urea Nitrogen 7 mg/dL (7-17); Calcium 9.2 mg/dL (8.4-10.2); Carbon Dioxide 28 mmol/L (22-30); Chloride 103 mmol/L (98-107); Estimated CRCL calculation 235 ml/min; Estimated Glomerular Filt Rate > 60; Glucose 95 mg/dL (65-110); Lipase 168 U/L (23-300); Potassium 4.5 mmol/L (3.4-5.0); Sodium 137 mmol/L (137-145)
--- NOTE | 2022-09-01 16:48 | PC.NURSE ---
PT AND DECIDED TO LEAVE AND GET IN TOUCH WITH HER PCP TOMORROW. THEY ARE CONCERNED ABOUT POTENTIAL RISK FOR RESP INFECTION WHILE IN THE ED.
== END 2022-09-01 18:26 | disposition left against medical advice (07) ==
LOC: ANHED 16:59
PROVIDERS: Emergency Provider Emergency Medicine; PCP Internal Medicine
DX: R10.9 Unspecified abdominal pain (principal)
CPT/HCPCS: 36415; 80053; 83690; 85025; 99199

== ENCOUNTER 2022-09-16 10:19 | Outpatient (CLI) | payer OTHER, MEDICARE, SELFPAY ==
--- NOTE | ~2022-09-16 | CT_ITS ---
CT of the Abdomen and Pelvis: Indication: Gross hematuria Technique: 2.5 mm axial scans were obtained through the abdomen and pelvis prior to and following in travenous administration of 130 cc of Omnipaque 350. Dose reduction technique was used on this scan b y utilizing automated exposure control and iterative reconstruction technique. The dose-length produc t (DLP) was 533.28 mGy-cm. Findings: Scans through the lung bases are unremarkable. The liver, spleen, pancreas, gallbladder, adrenals and left kidney are within normal limits. 2 mm non obstructing right renal stone present. Visualized ureters are unremarkable. No evidence of aortic ane urysm. No lymphadenopathy. No bowel obstruction or bowel wall thickening. There is no evidence to suggest acute appendicitis. Images through the pelvis were performed. Urinary bladder unremarkable. Small right adnexal cyst note d. No other adnexal mass seen. No ascites. Impression: 2 mm nonobstructing right renal stone. Reviewed, dictated and finalized at location . LEGAL INSTRUCTOR Impression: 2 mm nonobstructing right renal stone.
== END 2022-09-16 10:20 | disposition home or self-care (01) ==
PROVIDERS: PCP Internal Medicine; Visit Provider Internal Medicine
DX: R31.0 Gross hematuria (principal); N20.0 Calculus of kidney
CPT/HCPCS: 74178; Q9967